=== PATIENT | female | born 1950 | race Two or more races ===

== ENCOUNTER 2021-07-24 08:30 | Inpatient (IN) | payer OTHER ==
[~2021-07-24] VITALS: Ht 154.9 cm; Wt 98.0 kg
[2021-07-24] MEDS ORDERED: CANDESAR PO (11:09)
[2021-07-24] MEDS ORDERED: VITAMIN D-40010 MCG PO (11:11)
[2021-07-24] MEDS ORDERED: VITAMIN C100 MG PO (11:11)
[2021-07-24] MEDS ORDERED: DOLOGESIC 500-1 EACH PO (11:12)
[2021-07-24] MEDS ORDERED: BACLOFEN10 MG PO (11:12)
[2021-07-26] MEDS ORDERED: ATACAND4 MG (08:59)
== END 2021-07-27 11:15 | disposition home or self-care (01) | DRG 741 ==
LOC: O/R 07-26 06:00 → OB/GYN 07-26 06:00
PROVIDERS: ADMIT Obstetrics & Gynecology Gynecologic Oncology; ATTEND Obstetrics & Gynecology Gynecologic Oncology
PROC: 0UT24ZZ Resection of Bilateral Ovaries, Percutaneous Endoscopic Approach (ICD-10-PCS; 2021-07-26)
PROC: 0UT74ZZ Resection of Bilateral Fallopian Tubes, Percutaneous Endoscopic Approach (ICD-10-PCS; 2021-07-26)
PROC: 07BC4ZX Excision of Pelvis Lymphatic, Percutaneous Endoscopic Approach, Diagnostic (ICD-10-PCS; 2021-07-26)
PROC: 0UT94ZZ Resection of Uterus, Percutaneous Endoscopic Approach (ICD-10-PCS; principal; 2021-07-26 21:15)
DX: C54.1 Malignant neoplasm of endometrium (principal)